=== PATIENT | male | born 1990 | race American Indian/Alaskan Native ===

== ENCOUNTER 2018-01-08 11:14 | Emergency (ER) | payer SELFPAY ==
[2018-01-08 11:48] VITALS: BP 165/86
[2018-01-08] MEDS ORDERED: MOTRIN PO ONE (12:29)
--- NOTE | 2018-01-08 12:30 | Emergency Department Report ---
Blank Doc - Documentation Documentation: Patient is a 27-year-old male fell from [address] approximately arrival. Patient fell on his left side and has some left rib pain as well as some right sided neck pain. Patient has no loss of consciousness. X-rays of the taken the patient be reassessed.
--- NOTE | 2018-01-08 12:32 | Emergency Department Report ---
ED Fall HPI - General Chief Complaint: Fall Stated Complaint: FELL OUT OF [address] ON BACK Time Seen by Provider: 01/08/18 12:25 Source: patient, family Mode of arrival: Wheelchair - History of Present Illness Initial Comments: This is a 27-year-old male here reports that he was getting out of his 18 [address] and slipped and fell to the cement on his left side. He is complaining of left rib pain, lower back pain and neck pain. Denies any head injury or headache. His pain is 8-10 and achy. Denies any medical problems. Pain is worse to touch and move. No alleviating factors. No medication taken for pain MD Complaint: fall -: This afternoon Fall From: other (fell out tractor-trailer) When Fall Occurred: 1-3 hours [employer] Fall Witnessed: yes, by bystander Place Fall Occurred: street Loss of Consciousness: none Prolonged Down Time?: no Symptoms Prior to Fall: none Location: neck, back, other (left rib) Severity: severe Severity scale (0 -10): 8 Quality: aching Context: tripped/slipped Associated Symptoms: neck pain. denies: headache, numbness, weakness, chest paint, shortness of breath, abdominal pain, hematuria, unable to walk, lightheaded, vertigo, confusion - Related Data Previous Rx's Medication Instructions Recorded Last Taken Type Cyclobenzaprine [Flexeril] 10 mg PO TID PRN #12 tablet 01/08/18 Unknown Rx Ibuprofen [Motrin] 800 mg PO Q8HR PRN #15 tablet 01/08/18 Unknown Rx Allergies Allergy/AdvReac Type Severity Reaction Status Date / Time No Known Allergies Allergy Unverified 01/08/18 11:48 ED Review of Systems ROS: Stated complaint: FELL OUT OF [address] ON BACK Other details as noted in HPI Constitutional: denies: chills, fever Eyes: denies: eye pain, eye discharge, vision change Respiratory: denies: cough, shortness of breath, SOB with exertion, SOB at rest , stridor, wheezing Cardiovascular: denies: chest pain, palpitations, edema, syncope Gastrointestinal: denies: abdominal pain, nausea, vomiting, diarrhea, hematemesis, hematochezia Genitourinary: denies: urgency, dysuria, hematuria Musculoskeletal: back pain, arthralgia. denies: joint swelling Skin: denies: rash, lesions Neurological: denies: headache, weakness, numbness, paresthesias, confusion, abnormal gait, vertigo ED Past Medical Hx - Past Medical History Previous Medical History?: No - Surgical History Past Surgical History?: No - Family History Family history: hypertension - Social History Smoking Status: Never Smoker Substance Use Type: None - Medications Home Medications: Home Medications Medication Instructions Recorded Confirmed Last Taken Type Cyclobenzaprine [Flexeril] 10 mg PO TID PRN #12 tablet 01/08/18 Unknown Rx Ibuprofen [Motrin] 800 mg PO Q8HR PRN #15 tablet 01/08/18 Unknown Rx ED Physical Exam - General Limitations: No Limitations General appearance: alert, in no apparent distress - Head Head exam: Present: atraumatic, normocephalic, normal inspection, other (normal exam) - Eye Eye exam: Present: normal appearance, PERRL, EOMI Pupils: Present: normal accommodation - ENT ENT exam: Present: normal exam, normal orophraynx, mucous membranes moist, TM's normal bilaterally, normal external ear exam - Neck Neck exam: Present: normal inspection, full ROM (ports pain with moving and had from side to side at right and left neck), other (no C-spine tenderness). Absent: tenderness, lymphadenopathy - Respiratory Respiratory exam: Present: normal lung sounds bilaterally, other (patient with left rib tenderness mid axillary I below nipple line. Bruising noted). Absent : respiratory distress, wheezes, rales, rhonchi, stridor, chest wall tenderness , accessory muscle use, decreased breath sounds, prolonged expiratory - Cardiovascular Cardiovascular Exam: Present: regular rate, normal rhythm, normal heart sounds. Absent: systolic murmur, diastolic murmur - GI/Abdominal GI/Abdominal exam: Present: soft, normal bowel sounds. Absent: distended, tenderness, guarding, rebound, rigid, organomegaly, mass - Extremities Exam Extremities exam: Present: normal inspection, full ROM, normal capillary refill , other (No cce. + 2 pulses in all extremities, no neurovascular compromise). Absent: tenderness, pedal edema, joint swelling, calf tenderness - Back Exam Back exam: Present: normal inspection, full ROM, paraspinal tenderness ( bilateral lumbar paraspinal tenderness) - Neurological Exam Neurological exam: Present: alert, oriented X3 - Psychiatric Psychiatric exam: Present: normal affect, normal mood - Skin Skin exam: Present: warm, dry, intact, normal color. Absent: rash ED Course Vital Signs 01/08/18 11:44 Temperature 98 F Pulse Rate 80 Respiratory 18 Rate Blood Pressure 165/86 O2 Sat by Pulse 98 Oximetry ED Medical Decision Making - Radiology Data Radiology results: report reviewed Left rib detail for via with PA with no acute findings and xr C-spine with no acute findings patient does have some degenerative changes. This was dictated by radiologist and report reviewed by myself. Patient: ORIN MOHAMUD MR#: [id number] : 1990 Acct:[id number] Age/Sex: 27 / M ADM Date: 01/08/18 Loc: ED Attending Dr: Ordering Physician: TERRY WALSH MD Date of Service: 01/08/18 Procedure(s): XR ribs UNI w PA chest 3+V LT Accession Number(s): [id number] cc: TERRY WALSH MD Fluoro Time In Minutes: CHEST WITH LEFT RIB DETAIL FOUR VIEWS: 01/08/18 11:14:00 CLINICAL: Fall and left chest wall pain. FINDINGS: No rib fracture or rib lesion.The lungs are normally expanded and clear. No pneumothorax. Normal heart and pulmonary vasculature the lungs are clear. Normal soft tissues. IMPRESSION: Normal with no rib fracture identified. Transcribed By: REF Dictated By: LORAINE SPRAGUE MD Electronically Authenticated By: LORAINE SPRAGUE MD Signed Date/Time: 01/08/18 132 DD/ 1323 TD/TT: 01/08/18 1324 Findings [facility] [address] [place] [address] XRay Report Signed Patient: ORIN MOHAMUD MR#: [id number] : 1990 Acct:[id number] Age/Sex: 27 / M ADM Date: 01/08/18 Loc: ED Attending Dr: Ordering Physician: TERRY WALSH MD Date of Service: 01/08/18 Procedure(s): XR spine cervical 2-3V Accession Number(s): [id number] cc: TERRY WALSH MD Fluoro Time In Minutes: XRAY CERVICAL SPINE SERIES THREE VIEWS: 01/08/18 11:14:00 CLINICAL: Fall and neck pain. FINDINGS: Normal vertebral body height, alignment and disk spaces through T2. No fracture or subluxation. Normal odontoid and C1. Mild degenerative change mild anterior spondylosis at C4-5. Normal airway and soft tissues. IMPRESSION: Mild degenerative change. No apparent traumatic injury. Transcribed By: REF Dictated By: LORAINE SPRAGUE MD Electronically Authenticated By: LORAINE SPRAGUE MD Signed Date/Time: 01/08/181322 DD/ 20 TD/TT: 01/08/181322 - Medical Decision Making This is a 27-year-old morbidly obese male air after falling from his [address] on the concrete and landed on his rib. X-ray C-spine shows no acute fracture subluxation and x-ray of left ribs and PA chest shows no acute fracture dislocation. This was dictated by radiologist and report reviewed by myself. Assessment/plan 1: Left thoracic pain status post fall -better with Motrin 100 mg by mouth 1 2: Muscle strain-tender with Motrin and will discharge home and Flexeril 3: Back pain-better with pain medication I discussed the patient x-ray, medication and diagnosis and he was understanding is to follow-up with his primary care physician in 2 days and if he does not have one to follow up with outside Medical Center. Patient is better after given pain medication. Patient discharged home with prescription for Motrin and Flexeril. - Differential Diagnosis FX, subluxation, strain, musculoskeletal pain Critical care attestation.: If time is entered above; I have spent that time in minutes in the direct care of this critically ill patient, excluding procedure time. ED Disposition Clinical Impression: Accidental fall Qualifiers: Encounter type: initial encounter Qualified Code(s): W19.XXXA - Unspecified fall, initial encounter Back pain Qualifiers: Back pain location: low back pain Chronicity: acute Back pain laterality: bilateral Sciatica presence: without sciatica Qualified Code(s): M54.5 - Low back pain Neck muscle strain Qualifiers: Encounter type: initial encounter Qualified Code(s): S16.1XXA - Strain of muscle, fascia and tendon at neck level, initial encounter Disposition: TO HOME OR SELFCARE Is pt being admited?: No Does the pt Need Aspirin: No Condition: Stable Instructions: Muscle Strain (ED), Fall Prevention (ED), Back Pain (ED), Arthralgia (ED), Musculoskeletal Pain (ED) Additional Instructions: Take Flexeril for neck muscle strain and Motrin for musculoskeletal pain Follow up with orthopedic and primarycare physician in 2 days Referrals: PRIMARY CARE, [Primary Care Provider] - 01/10/18 GODFREY GREENE MD [Staff Physician] - 01/10/18 [facility] [Outside] - 01/10/18 Forms: Accompanied Note, Work/School Release Form(ED)
--- NOTE | 2018-01-08 13:27 | XRay Report ---
XRAY CERVICAL SPINE SERIES THREE VIEWS: 01/08/18 11:14:00 CLINICAL: Fall and neck pain. FINDINGS: Normal vertebral body height, alignment and disk spaces through T2. No fracture or subluxation. Normal odontoid and C1. Mild degenerative change mild anterior spondylosis at C4-5. Normal airway and soft tissues. IMPRESSION: Mild degenerative change. No apparent traumatic injury.
--- NOTE | 2018-01-08 13:28 | XRay Report ---
CHEST WITH LEFT RIB DETAIL FOUR VIEWS: 01/08/18 11:14:00 CLINICAL: Fall and left chest wall pain. FINDINGS: No rib fracture or rib lesion.The lungs are normally expanded and clear. No pneumothorax. Normal heart and pulmonary vasculature the lungs are clear. Normal soft tissues. IMPRESSION: Normal with no rib fracture identified.
== END 2018-01-08 14:03 | disposition home or self-care (01) ==
LOC: ED 11:14
DX: S16.1XXA Strain of muscle, fascia and tendon at neck level, initial encounter (principal); M54.5 Low back pain; R07.81 Pleurodynia; W01.0XXA Fall on same level from slipping, tripping and stumbling without subsequent striking against object, initial encounter; Y93.89 Activity, other specified; Y99.8 Other external cause status; Y92.488 Other paved roadways as the place of occurrence of the external cause
CPT/HCPCS: 72040; 99283